=== PATIENT | female | born 1985 | race Caucasian/White ===

== ENCOUNTER 2017-02-13 14:48 | Inpatient (IN) | payer OTHER ==
[~2017-02-13] VITALS: Ht 167.6 cm; Wt 95.3 kg
[2017-02-13] VITALS (8 sets, daily range): BP systolic 111–133; BP diastolic 57–86
[2017-02-13 16:27] LABS: EOSINOPHIL (%) 0.4 % (0-5); HEMATOCRIT 34.2 % (36.0-46.0); IMMATURE GRANULOCYTE (%) 0.5 % (0.0-0.7); LYMPHOCYTE COUNT 1.5 K/uL (1.0-2.8); MCH 32.3 PG (29.0-34.0); MCHC 34.8 G/DL (30.0-36.0); MCV 92.9 FL (83-99); MONOCYTE (%) 4.9 % (3-12); MONOCYTE COUNT 0.4 K/uL (0-0.8); NEUTROPHIL (%) 75.5 % (45-76); PLATELET COUNT 164 K/uL (156-360); RBC DIS.WIDTH-CV 13.2 % (11.8-14.6); RBC DIS.WIDTH-SD 44.3 % (39-53); RED BLOOD COUNT 3.68 M/uL (3.80-5.20); WHITE BLOOD COUNT 7.9 K/uL (4.1-10.2)
[2017-02-13] MEDS ORDERED: SUDAFED 12-HOU120 MG PO ×2 (16:28→16:29)
[2017-02-13] MEDS ORDERED: MUCINEX600 MG PO (16:28)
[2017-02-13] MEDS ORDERED: PRENATAL TABLE1 EAC3 PO (16:30)
[2017-02-14] VITALS (26 sets, daily range): BP systolic 92–138; BP diastolic 50–76
[2017-02-14] MEDS ORDERED: MOTRIN800 MG PO (20:58)
[2017-02-15 06:34] LABS: EOSINOPHIL (%) 0.6 % (0-5); EOSINOPHIL COUNT 0.1 K/uL (0-0.3); HEMATOCRIT 31.8 % (36.0-46.0); IMMATURE GRANULOCYTE (%) 0.4 % (0.0-0.7); INSTRUMENT ABS NEUTROPHIL CT 6.2 K/uL; LYMPHOCYTE COUNT 1.6 K/uL (1.0-2.8); MCH 31.5 PG (29.0-34.0); MCHC 33.3 G/DL (30.0-36.0); MCV 94.4 FL (83-99); MEAN PLAT.VOLUME 12.5 uM^3 (9.5-12.4); MONOCYTE (%) 6.6 % (3-12); MONOCYTE COUNT 0.6 K/uL (0-0.8); NEUTROPHIL (%) 73.7 % (45-76); NEUTROPHIL COUNT 6.2 K/uL (1.8-6.4); PLATELET COUNT 138 K/uL (156-360); RBC DIS.WIDTH-CV 13.2 % (11.8-14.6); RBC DIS.WIDTH-SD 45.1 % (39-53); RED BLOOD COUNT 3.37 M/uL (3.80-5.20); WHITE BLOOD COUNT 8.4 K/uL (4.1-10.2)
[2017-02-15 07:13] VITALS: BP 121/62
[2017-02-15 14:51] VITALS: BP 116/60
[2017-02-15 23:15] VITALS: BP 130/68
[2017-02-16 07:44] VITALS: BP 137/63
== END 2017-02-16 14:05 | disposition home or self-care (01) | DRG 775 ==
LOC: LDRP-OP 14:48 → 2WEST 14:50 → LDRP-OP 03-13 16:28
PROVIDERS: Midwife; Obstetrics & Gynecology
PROC: 3E033VJ Introduction of Other Hormone into Peripheral Vein, Percutaneous Approach (ICD-10-PCS; 2017-02-13)
PROC: 10907ZC Drainage of Amniotic Fluid, Therapeutic from Products of Conception, Via Natural or Artificial Opening (ICD-10-PCS; 2017-02-13)
PROC: 3E0P7GC Introduction of Other Therapeutic Substance into Female Reproductive, Via Natural or Artificial Opening (ICD-10-PCS; 2017-02-13)
PROC: 10E0XZZ Delivery of Products of Conception, External Approach (ICD-10-PCS; principal; 2017-02-14)
PROC: 3E0S3BZ Introduction of Anesthetic Agent into Epidural Space, Percutaneous Approach (ICD-10-PCS; 2017-02-14)
DX: O41.03X1 Oligohydramnios, third trimester, fetus 1 (principal); D50.9 Iron deficiency anemia, unspecified; Z37.0 Single live birth; Z3A.40 40 weeks gestation of pregnancy; O99.824 Streptococcus B carrier state complicating childbirth; J30.2 Other seasonal allergic rhinitis; O99.013 Anemia complicating pregnancy, third trimester
CPT/HCPCS: 85025; C1755; G0378; J2540; J3010; J7120

== ENCOUNTER 2017-06-09 17:51 | Emergency (ER) | payer OTHER ==
[~2017-06-09] VITALS: Ht 167.6 cm; Wt 85.1 kg
[~2017-06-09 17:51] MED LIST: MOTRIN800 MG PO; MUCINEX600 MG PO; PRENATAL TABLE1 EAC3 PO; SUDAFED 12-HOU120 MG PO
[2017-06-09 18:41] LABS: HEMATOCRIT 40.8 % (36.0-46.0); HEMOGLOBIN 13.7 G/DL (11.9-15.5); MCH 31.1 PG (29.0-34.0); MCHC 33.6 G/DL (30.0-36.0); MCV 92.5 FL (83-99); PLATELET COUNT 242 K/uL (156-360); RBC DIS.WIDTH-CV 12.3 % (11.8-14.6); RBC DIS.WIDTH-SD 42.4 % (39-53); RED BLOOD COUNT 4.41 M/uL (3.80-5.20); WHITE BLOOD COUNT 6.6 K/uL (4.1-10.2)
[2017-06-09 18:50] LABS: ALBUMIN 4.3 g/dL (3.2-4.8); CHLORIDE 104 mEq/L (99-109); POTASSIUM 3.5 mEq/L (3.7-5.4); SODIUM 139 mEq/L (136-147)
[2017-06-09 18:52] LABS: GLUCOSE 104 mg/dL (70-99); TOTAL PROTEIN 7.5 g/dL (6.4-8.3)
[2017-06-09 18:54] LABS: TOTAL BILIRUBIN 0.5 mg/dL (0.0-1.0)
[2017-06-09 18:56] LABS: ALKALINE PHOSPHATASE 59 IU/L (3-129); CREATININE 0.7 mg/dL (0.6-1.3); GFR ESTIMATE (CALCULATED) > 59 mL/min/
[2017-06-09 18:57] LABS: UREA NITROGEN (BUN) 14 mg/dL (9-23)
[2017-06-09 18:58] LABS: AST (GOT) 17 IU/L (2-34)
[2017-06-09 18:59] LABS: ALT (GPT) 20 IU/L (3-49)
[2017-06-09 19:18] LABS: QUANTITATIVE HCG < 4.0 MIU/ML
[2017-06-09 21:00] LABS: APPEARANCE SL.HAZY ((CLEAR)); BILIRUBIN NEGATIVE; BLOOD NEGATIVE; COLOR YELLOW ((YELLOW)); GLUCOSE (STRIP) NEGATIVE; KETONES NEGATIVE; LEUKOCYTES MODERATE; NITRITE NEGATIVE; PROTEIN (STRIP) NEGATIVE; SPECIFIC GRAVITY 1.015 (1.000-1.030); UROBILINOGEN 0.2 MG/DL (0.2-1.0)
[2017-06-09 21:08] LABS: BACTERIA NONE SEEN /HPF; EPITHELIAL CELLS 2+ /HPF; MUCUS TRACE /LPF; RED BLOOD CELLS 0-5 /HPF (0-5); UCUL ADDED? YES; WHITE BLOOD CELLS 15-20 /HPF (0-5)
[2017-06-09] MEDS ORDERED: MACROBID100 MG PO (22:01)
[2017-06-09] MEDS ORDERED: ZOFRAN ODT4 MG PO (22:02)
[2017-06-09 22:28] VITALS: BP 128/75
== END 2017-06-09 22:29 | disposition home or self-care (01) ==
LOC: EME 17:51 → EXP 17:51
DX: N39.0 Urinary tract infection, site not specified (principal); K59.00 Constipation, unspecified
CPT/HCPCS: 74020; 80053; 81003; 84702; 85027; 87086; 99281; 99284